=== PATIENT | female | born 1985 | race Caucasian/White ===

== ENCOUNTER → 2021-10-16 | Outpatient (CLI) | payer BC ==
[~2021-10-16] MED LIST: CLEOCIN HCL150 MG PO; IBUPROFEN 800800 M1 PO; TRAMADOL 50 MG50 MG PO
== END ==
LOC: ULTRA 08:08
PROVIDERS: ATTEND Nurse Practitioner
DX: R74.8 Abnormal levels of other serum enzymes (principal)